=== PATIENT | male | born 1960 | race Caucasian/White ===

== ENCOUNTER 2017-10-04 18:21 | Emergency (ER) | payer OTHER ==
[~2017-10-04] VITALS: Ht 177.8 cm; Wt 113.4 kg
[2017-10-04 18:25] VITALS: BP 125/60
--- NOTE | 2017-10-04 18:52 | NUR ---
DR ROWE,AT [facility] PAGED AT [phone] BLOUNT
--- NOTE | 2017-10-04 19:07 | NUR ---
ON PHONE WITH
== END 2017-10-04 19:24 | disposition home or self-care (01) ==
LOC: ER 18:24
DX: G58.9 Mononeuropathy, unspecified (principal); M19.90 Unspecified osteoarthritis, unspecified site
CPT/HCPCS: 99281; A4606; Z7610; Z7502